=== PATIENT | male | born 1970 | race American Indian/Alaskan Native ===

== ENCOUNTER 2017-07-11 09:31 | Emergency (ER) | payer OTHER ==
--- NOTE | 2017-07-11 09:56 | C.PDOC ---
History Of Present Illness 47 yo male, presents with rash to right lower extremity, noted last night, to right lower leg. no fevers, trauma, puritits, or other complaints. pt also reports minimal to left leg Time Seen by Provider: 07/11/17 09:50 Chief Complaint (Nursing): Abnormal Skin Integrity Past Medical History Reviewed: Historical Data, Nursing Documentation, Vital Signs Vital Signs: Last Vital Signs Temp 97.7 F 07/11/17 12:45 Pulse 68 07/11/17 12:45 Resp 20 07/11/17 12:45 BP 143/90 07/11/17 12:45 Pulse Ox 100 07/11/17 12:45 - Medical History PMH: HTN Family History: States: Unknown Family Hx - Social History Hx Alcohol Use: Yes Hx Substance Use: No - Immunization History Hx Tetanus Toxoid Vaccination: Yes Hx Influenza Vaccination: Yes Hx Pneumococcal Vaccination: No Review Of Systems Except As Marked, All Systems Reviewed And Found Negative. Skin: Positive for: Rash Physical Exam - Physical Exam Appears: Well, No Acute Distress Skin: Normal Color, Warm, Dry Eye(s): bilateral: Normal Inspection, PERRL, EOMI Nose: Normal Throat: Normal Neck: Normal Cardiovascular: Rhythm Regular Respiratory: Normal Breath Sounds Gastrointestinal/Abdominal: Normal Exam Back: Normal Inspection Extremity: Normal ROM, Other ((+)right lower leg, maculopapular rash, warm to touch (+)3-4 cm (+)minimal rash to left leg, 1-2 cm) ED Course And Treatment - Laboratory Results Result Diagrams: 07/11/17 10:10 07/11/17 10:10 O2 Sat by Pulse Oximetry: 99 Medical Decision Making Medical Decision Making: rash- suspect cellulits. r/o dvt 1100: rash improving in er. labs neg. us neg as per tech, stable for outpt trial. return precautions advised Disposition - Disposition Disposition: HOME/ ROUTINE Disposition Time: 11:12 Condition: STABLE Additional Instructions: please follow up with your doctor. return to er with worsening symptoms or concerns. Prescriptions: Sulfamethoxazole/Trimethoprim [Bactrim DS 800 mg-160 mg] 1 tab PO BID #20 tab Instructions: Cellulitis (ED), Acute Rash (ED) Forms: [email or web address] (Turkish), Work Excuse - Clinical Impression Clinical Impression: Cellulitis, Rash
[2017-07-11 10:14] LABS: BASO # 0.1 K/uL (0.0-0.2); EOS # 0.4 K/uL (0.0-0.7); EOS % 6.8 % (0.0-4.0); HEMATOCRIT 37.2 % (35.0-51.0); LYMPH % 31.9 % (20.0-40.0); MEAN CELL VOLUME 95.2 fL (80.0-94.0); MEAN CORPUSCULAR HEMOGLOBIN 33.4 pg (27.0-31.0); MEAN CORPUSCULAR HGB CONC 35.1 g/dL (33.0-37.0); MEAN PLATELET VOLUME 6.3 fL (7.2-11.7); MONO # 0.8 K/uL (0.0-0.8); MONO % 12.7 % (0.0-10.0); NRBC % 0.1 % (0.0-2.0); RED CELL DISTRIBUTION WIDTH 12.6 % (11.5-14.5); WHITE BLOOD COUNT 6.3 K/uL (4.8-10.8)
[2017-07-11 10:26] LABS: ALB/GLOB RATIO 1.1 (1.0-2.1); ALKALINE PHOSPHATASE 77 U/L (38-126); ALT/SGPT 50 U/L (21-72); AST/SGOT 48 U/L (17-59); BILIRUBIN,TOTAL 0.6 mg/dL (0.2-1.3); BLOOD UREA NITROGEN 14 mg/dL (9-20); CALCIUM 8.6 mg/dl (8.6-10.4); CARBON DIOXIDE 25 mmol/L (22-30); CHLORIDE 99 mmol/L (98-107); GFR AFRICAN-AMERICAN > 60; GLUCOSE,RANDOM 85 mg/dL (75-110); POTASSIUM 3.9 mmol/L (3.6-5.2); SODIUM 137 mmol/L (132-148)
[2017-07-11] MEDS ORDERED: Doxycycline 100 mg Inj ONE (11:21)
[2017-07-11 12:46] VITALS: BP 143/90; PULSE 68; RESP 20; TEMP 97.7
[2017-07-11 13:13] VITALS: O2SAT 99
--- NOTE | 2017-07-12 10:45 | VASCLAB ---
PROCEDURE: Lower Extremity Venous Duplex Exam. HISTORY: leg swelling PRIORS: None. TECHNIQUE: Bilateral common femoral, femoral, popliteal and posterior tibial, peroneal and great saphenous veins were evaluated. Flow was assessed with color Doppler, compressibility, assessment of phasic flow and augmentation response. Report prepared by ELISE العلي, RVT FINDINGS: RIGHT: 1. Common Femoral Vein: 1.1. Compressibility - Fully compressible: Thrombus - None : Flow - Phasic: Augmentation -Normal: Reflux - None. 2. Femoral Vein: 2.1. Compressibility - Fully compressible: Thrombus - None : Flow - Phasic: Augmentation -Normal: Reflux - Severe. 3. Popliteal Vein: 3.1. Compressibility - Fully compressible: Thrombus - None : Flow - Phasic: Augmentation -Normal: Reflux - Severe. 4. Posterior Tibial Vein: 4.1. Compressibility - Fully compressible: Thrombus - None: Flow - Phasic: Augmentation -Normal: Reflux - None. 5. Peroneal Vein: 5.1. Compressibility - Fully compressible: Thrombus - None: Flow - Phasic: Augmentation -Normal: Reflux - None. 6. Great Saphenous Vein: 6.1. Compressibility - Fully compressible: Thrombus - None: Flow - Phasic: Augmentation - Normal: Reflux - Severe. LEFT: 1. Common Femoral Vein: 1.1. Compressibility - Fully compressible: Thrombus - None: Flow - Phasic: Augmentation -Normal: Reflux - None. 2. Femoral Vein: 2.1. Compressibility - Fully compressible: Thrombus - None: Flow - Phasic: Augmentation -Normal: Reflux - Severe. 3. Popliteal Vein: 3.1. Compressibility - Fully compressible: Thrombus - None : Flow - Phasic: Augmentation -Normal: Reflux - Severe. 4. Posterior Tibial Vein: 4.1. Compressibility - Fully compressible: Thrombus - None: Flow - Phasic: Augmentation -Normal: Reflux - None. 5. Peroneal Vein: 5.1. Compressibility - Fully compressible: Thrombus - None: Flow - Phasic: Augmentation -Normal: Reflux - None. 6. Great Saphenous Vein: 6.1. Compressibility - Fully compressible: Thrombus - None: Flow - Phasic: Augmentation - Normal: Reflux - Severe. OTHER FINDINGS: Right: Severe valvular incompetence of the right femoral, popliteal and greater saphenous veins. Left: Severe valvular incompetence of the left femoral, popliteal and greater saphenous veins. IMPRESSION: Right: No evidence of deep or superficial vein thrombosis of the right lower extremity. Left: No evidence of deep or superficial vein thrombosis of the left lower extremity.
== END 2017-07-11 12:52 | disposition home or self-care (01) ==
LOC: C.ER 09:31
DX: R21 Rash and other nonspecific skin eruption (principal); L03.115 Cellulitis of right lower limb
CPT/HCPCS: 80053; 85025; 85610; 85730; 93970; 96365; 96367; 99285; J0696

== ENCOUNTER 2018-06-12 17:25 | Emergency (ER) | payer MEDICAID, OTHER ==
[2018-06-12 17:52] VITALS: RESP 18
[2018-06-12 19:10] VITALS: TEMP 99
--- NOTE | 2018-06-12 19:18 | C.PDOC ---
History Of Present Illness 48 year old male with a PMHx of HTN, presents to the ED requesting med refill. Patient states he ran out of his blood pressure medication on Sunday. He has follow up with his primary doctor this coming Sunday. Requesting refill for the interim. Denies any headache, chest pain, dizziness, or SOB. Additionally, patient complains of a dry cough for the last day and a half. No associated fever, chills, wheezing, or tightness. Time Seen by Provider: 06/12/18 18:35 Chief Complaint (Nursing): Cough, Cold, Congestion History Per: Patient History/Exam Limitations: no limitations Onset/Duration Of Symptoms: Days Current Symptoms Are (Timing): Still Present Past Medical History Reviewed: Historical Data, Nursing Documentation, Vital Signs Vital Signs: Last Vital Signs Temp 99.0 F 06/12/18 20:02 Pulse 70 06/12/18 20:02 Resp 18 06/12/18 20:02 BP 139/90 06/12/18 20:02 Pulse Ox 100 06/12/18 20:02 - Medical History PMH: HTN Family History: States: Unknown Family Hx - Social History Hx Alcohol Use: Yes Hx Substance Use: No - Immunization History Hx Tetanus Toxoid Vaccination: Yes Hx Influenza Vaccination: Yes Hx Pneumococcal Vaccination: No Review Of Systems Constitutional: Negative for: Fever, Chills Cardiovascular: Negative for: Chest Pain, Palpitations Respiratory: Positive for: Cough. Negative for: Shortness of Breath, Sputum, Wheezing Neurological: Negative for: Headache, Dizziness Physical Exam - Physical Exam Appears: Non-toxic, No Acute Distress Skin: Normal Color, Warm, No Rash Head: Atraumatic, Normacephalic Eye(s): bilateral: PERRL, EOMI Oral Mucosa: Moist Neck: Normal ROM, Supple Chest: Symmetrical, No Tenderness Cardiovascular: Rhythm Regular, No Murmur Respiratory: Normal Breath Sounds, No Rales, No Rhonchi, No Wheezing Gastrointestinal/Abdominal: Soft, No Tenderness, No Distention Extremity: Normal ROM, No Pedal Edema, No Calf Tenderness, No Swelling Neurological/Psych: Oriented x3, Normal Speech, Normal Cognition, Normal Motor, Normal Sensation Gait: Steady ED Course And Treatment O2 Sat by Pulse Oximetry: 97 (RA) Pulse Ox Interpretation: Normal Medical Decision Making Medical Decision Making: Impression: 48 y/o male requesting med refill Plan: Patients blood pressure is mildly elevated on arrival. Will give dose of his usual meds (Lopressor 25mg x1) and provide refill of the same for home until Sat whem pt see pmd. . Disposition - Disposition Referrals: Alannah Delarosa MD [Medical Doctor] - Disposition: HOME/ ROUTINE Disposition Time: 19:50 Condition: GOOD Additional Instructions: Please take blood pressure medicine as prescribed. Follow up with your primary care doctor on Sunday as scheduled. Return to ER for fever, chest pain, headache or any other concerning symptoms. Prescriptions: Metoprolol Succinate XL [Toprol XL] 50 mg PO DAILY #7 tab Instructions: High Blood Pressure (DC), Cough, Adult (DC) Forms: General Discharge Instructions, [facility] (S[place] Leonean), Work Excuse - Clinical Impression Clinical Impression: Cough, Hypertension - PA / [employer] / Resident Statement MD/DO has reviewed & agrees with the documentation as recorded. - Scribe Statement The provider has reviewed the documentation as recorded by the Scribe (Delfina Justice) All medical record entries made by the Scribe were at my direction and personally dictated by me. I have reviewed the chart and agree that the record accurately reflects my personal performance of the history, physical exam, medical decision making, and the department course for this patient. I have also personally directed, reviewed, and agree with the discharge instructions and disposition.
[2018-06-12 20:03] VITALS: BP 139/90; PULSE 70
[2018-06-16 00:35] VITALS: O2SAT 97
== END 2018-06-12 20:06 | disposition home or self-care (01) ==
LOC: C.ER 17:25
DX: I10 Essential (primary) hypertension (principal); R05 Cough

== ENCOUNTER 2018-07-01 12:17 | Emergency (ER) | payer OTHER ==
[2018-07-01 12:26] VITALS: PULSE 102; RESP 18; TEMP 98.3; O2SAT 98
--- NOTE | 2018-07-01 12:42 | C.PDOC ---
History Of Present Illness 48 y/o male with history of HTN presents to ED requesting blood pressure medication refill. Patient was seen on 06/12/2018 for same and notes he has not been able to see his PMD since. Patient states he went to see his PMD today but has been unable to be seen by him and has scheduled appointment on 07/12/18. Notes he took his last dose this morning. Denies headache, chest pain, dizziness , sob, syncope, or any other complaints at this time. Time Seen by Provider: 07/01/18 12:41 Chief Complaint (Nursing): Med Refill History Per: Patient History/Exam Limitations: no limitations Onset/Duration Of Symptoms: Days Current Symptoms Are (Timing): Still Present Past Medical History Reviewed: Historical Data, Nursing Documentation, Vital Signs Vital Signs: Last Vital Signs Temp 98.3 F 07/01/18 12:23 Pulse 102 H 07/01/18 12:23 Resp 18 07/01/18 12:23 BP 134/93 H 07/01/18 13:00 Pulse Ox 98 07/01/18 13:03 - Medical History PMH: HTN Surgical History: No Surg Hx Family History: States: No Known Family Hx - Social History Hx Alcohol Use: Yes Hx Substance Use: No - Immunization History Hx Tetanus Toxoid Vaccination: Yes Hx Influenza Vaccination: Yes Hx Pneumococcal Vaccination: No Review Of Systems Constitutional: Negative for: Fever, Chills Cardiovascular: Negative for: Chest Pain Gastrointestinal: Negative for: Nausea, Vomiting Skin: Negative for: Rash Neurological: Negative for: Dizziness Physical Exam - Physical Exam Appears: Non-toxic, No Acute Distress Skin: Warm, Dry, No Rash Head: Atraumatic, Normacephalic Eye(s): bilateral: Normal Inspection, EOMI Nose: Normal Oral Mucosa: Moist Neck: Normal ROM, Supple Chest: Symmetrical Cardiovascular: Rhythm Regular Respiratory: Normal Breath Sounds, No Rales, No Rhonchi, No Wheezing Gastrointestinal/Abdominal: Soft, No Tenderness, No Guarding, No Rebound Extremity: Normal ROM Neurological/Psych: Oriented x3, Normal Speech, Normal Cognition ED Course And Treatment O2 Sat by Pulse Oximetry: 98 (RA) Pulse Ox Interpretation: Normal Progress Note: Instructed strict follow up with his pmd, return to ER if symptoms persist or worsen. Disposition - Disposition Disposition: HOME/ ROUTINE Disposition Time: 12:50 Condition: STABLE Additional Instructions: Follow up with your primary medical doctor or clinic in 2-5 days for further evaluation. Take medications as prescribed. Return to the emergency department at any time if symptoms persist or worsen. 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 - Scribe Statement The provider has reviewed the documentation as recorded by the Germania Romero All medical record entries made by the Germania were at my direction and personally dictated by me. I have reviewed the chart and agree that the record accurately reflects my personal performance of the history, physical exam, medical decision making, and the department course for this patient. I have also personally directed, reviewed, and agree with the discharge instructions and disposition.
[2018-07-01] MEDS ORDERED: Metoprolol Succinate 50 mg XL Tab PO STA (12:44)
[2018-07-01 13:00] VITALS: BP 134/93
== END 2018-07-01 13:00 | disposition home or self-care (01) ==
LOC: C.ER 12:17
DX: I10 Essential (primary) hypertension (principal)